=== PATIENT | female | born 1965 | race Two or more races ===

== ENCOUNTER 2018-06-09 10:28 | Outpatient (CLI) | payer OTHER | END 2018-06-09 10:39 | disposition home or self-care (01) | LOC: SONOGRAMA 10:28 | DX: M25.561 Pain in right knee (principal) ==

== ENCOUNTER 2019-05-23 08:44 | Outpatient (CLI) | payer OTHER ==
[~2019-05-23] VITALS: Ht 157.5 cm; Wt 73.9 kg
== END 2019-05-23 09:00 | disposition home or self-care (01) ==
LOC: OFIC 805 08:44
DX: J34.89 Other specified disorders of nose and nasal sinuses (principal); R09.81 Nasal congestion; J32.8 Other chronic sinusitis